=== PATIENT | male | born 1955 | race American Indian/Alaskan Native ===

== ENCOUNTER 2018-08-11 17:01 | Emergency (ER) | payer OTHER ==
[2018-08-11] MEDS ORDERED: XYLOCAINE 2%/ EPI 1:200,000 INFILTRATI ONE (17:52)
[2018-08-11] MEDS ORDERED: NACL 0.9% IR ONE (17:52)
[2018-08-11] MEDS ORDERED: PERCOCET 5/325 PO ONE (17:52)
[2018-08-11] MEDS ORDERED: BOOSTRIX IM ONE (17:52)
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
[2018-08-11 19:04] LABS: BUN/Creatinine Ratio 18; Blood Urea Nitrogen 18 mg/dL (9-20); Calcium 8.8 mg/dL (8.4-10.2); Hemolysis Index 42
[2018-08-11] MEDS ORDERED: KEFLEX PO ONE (20:01)
[2018-08-11] MEDS ORDERED: ANTIBIOTIC OINT TP STA (20:01)
[2018-08-11 22:03] VITALS: BP 157/93
[2018-08-11 22:19] LABS: Bilirubin,Urine NEG (Negative); Blood,Urine NEG (Negative); Color,Urine Yellow (Yellow); Mucus,Urine FEW /HPF; Protein,Urine <15 mg/dL mg/dL (Negative); Urobilinogen,Urine < 2.0 mg/dL (<2.0)
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
[2018-08-11] MEDS ORDERED: ZOFRAN ODT ONE (23:24)
[2018-08-11] MEDS ORDERED: ZOFRAN ODT PO ONE (23:28)
== END 2018-08-11 22:54 | disposition home or self-care (01) ==
LOC: ED 17:01
DX: S61.411A Laceration without foreign body of right hand, initial encounter (principal); I10 Essential (primary) hypertension; M25.512 Pain in left shoulder; M54.2 Cervicalgia; V49.49XA Driver injured in collision with other motor vehicles in traffic accident, initial encounter; Y93.89 Activity, other specified; Y92.89 Other specified places as the place of occurrence of the external cause; Y99.8 Other external cause status
CPT/HCPCS: 36415; 70450; 71045; 80048; 81001; 82550; 82962; 90471; 90715; Q0162

== ENCOUNTER 2018-08-22 14:14 | Emergency (ER) | payer OTHER ==
--- NOTE | 2018-08-22 15:15 | Emergency Department Report ---
Chief Complaint: Laceration/Recheck/Suture Stated Complaint: REMOVAL OF SUTURES - HPI History of Present Illness: This is a 63 y.o. male that presents for evaluation of wound between left 4th and 5th digits. Patient states sutures came out about 5-7 days after placement. Patient was seen here 08/11/2018 and laceration repair. - ROS Review of Systems: skin: wound dehiscence of right hand between 4th & 5th digits - Exam Vital Signs: Vital Signs 08/22/18 15:11 Temperature 98.1 F Pulse Rate 84 Respiratory 18 Rate Blood Pressure 175/101 O2 Sat by Pulse 98 Oximetry MSE screening note: Focused history and physical exam performed. Due to findings the following was ordered: Fast track for further evaluation. ED Disposition for MSE Condition: Stable
--- NOTE | 2018-08-22 17:44 | Emergency Department Report ---
Suture/Staple Removal - [facility] Chief Complaint: Laceration/Recheck/Suture Stated Complaint: REMOVAL OF SUTURES Time Seen by Provider: 08/22/18 16:31 When Sutures or Olin Placed: 8-10 Days Ago Wound Location: right hand ED Review of Systems ROS: Stated complaint: REMOVAL OF SUTURES Other details as noted in HPI Constitutional: denies: chills, fever Eyes: denies: eye pain, eye discharge, vision change ENT: denies: ear pain, throat pain Respiratory: denies: cough, shortness of breath, wheezing Cardiovascular: denies: chest pain, palpitations Endocrine: no symptoms reported Gastrointestinal: denies: abdominal pain, nausea, diarrhea Genitourinary: denies: urgency, dysuria Musculoskeletal: denies: back pain, joint swelling, arthralgia Skin: denies: rash, lesions Neurological: denies: headache, weakness, paresthesias Psychiatric: denies: anxiety, depression Hematological/Lymphatic: denies: easy bleeding, easy bruising ED Past Medical Hx - Past Medical History Previous Medical History?: No - Surgical History Past Surgical History?: No Additional Surgical History: Left toe - Social History Smoking Status: Never Smoker Substance Use Type: None - Medications Home Medications: Home Medications Medication Instructions Recorded Confirmed Last Taken Type Acetaminophen [Tylenol Arthritis] 650 mg PO Q6HR PRN #30 tablet.er 08/11/18 Unknown Rx Bacitracin 3.5 gm OP TID #1 oint...g. 08/11/18 Unknown Rx Cephalexin [Keflex] 500 mg PO BID #10 capsule 08/11/18 Unknown Rx Ibuprofen [Motrin] 600 mg PO Q8H PRN #30 tablet 08/11/18 Unknown Rx Clindamycin [Clindamycin CAP] 300 mg PO Q8H #21 cap 08/22/18 Unknown Rx Suture Removal Exam - Exam General: Vital signs noted. No distress. Alert and acting appropriately. Wound: Yes Wound Dehiscence, No Pathologic Erythema, No Tenderness, No Drainage, No Pus Other Systems: All other systems reviewed and are unremarkable. ED Course Vital Signs 08/22/18 15:11 Temperature 98.1 F Pulse Rate 84 Respiratory 18 Rate Blood Pressure 175/101 O2 Sat by Pulse 98 Oximetry - Reevaluation(s) Reevaluation #1: 08/22/18 18:00 Patient is speaking in full sentences with no signs of distress noted. ED Recheck MDM - Medical Decision Making This is a 63-year-old male that presents with suture removal with some superficial dehiscence. Patient is stable and was examined by me. Sutures have not been removed as it is not ready and there is some dehiscence. As per patient the dehiscence started about 7 days ago. Today, i used steri streps to proximate the dehiscence and will discharge patient with Clinda. He was instructed to return in 5 days for suture removal. Patient was referred to Follow-up with a primary care doctor in 3-5 days or if symptoms worsen and continue return to emergency room as soon as possible. At time of discharge, the patient does not seem toxic or ill in appearance. No acute signs of distress noted. Patient agrees to discharge treatment plan of care. No further questions noted by the patient. Critical care attestation.: If time is entered above; I have spent that time in minutes in the direct care of this critically ill patient, excluding procedure time. ED Disposition Clinical Impression: Wound dehiscence Disposition: DC-01 TO HOME OR SELFCARE Is pt being admited?: No Does the pt Need Aspirin: No Condition: Stable Instructions: Wound Dehiscence (ED) Additional Instructions: Follow-up with a primary care doctor in 3-5 days or if symptoms worsen and continue return to emergency room as soon as possible. Return in 5 days for suture removal. Prescriptions: Clindamycin [Clindamycin CAP] 300 mg PO Q8H #21 cap [facility] [Primary Care Provider] - 3-5 Days PRIMARY MD CARLOS ALBERTO [Referring] - 3-5 Days DANTE RENEE MD [Staff Physician] - 3-5 Days [facility] [Outside] - 3-5 Days Forms: Work/School Release Form(ED)
== END 2018-08-22 18:20 | disposition home or self-care (01) ==
LOC: ED 14:14
CPT/HCPCS: 99282

== ENCOUNTER 2018-08-28 15:51 | Emergency (ER) | payer SELFPAY ==
--- NOTE | 2018-08-28 16:07 | Emergency Department Report ---
Suture/Staple Removal - [facility] Chief Complaint: Laceration/Recheck/Suture Stated Complaint: SUTURE REMOVAL Time Seen by Provider: 08/28/18 16:05 When Sutures or Alverto Placed: 8-10 Days Ago Wound Location: r hand ED Review of Systems ROS: Stated complaint: SUTURE REMOVAL Other details as noted in HPI Comment: All other systems reviewed and negative Constitutional: denies: see HPI Eyes: denies: eye pain ENT: denies: throat pain Respiratory: denies: cough Cardiovascular: denies: palpitations Endocrine: denies: intolerance to cold Gastrointestinal: denies: vomiting Genitourinary: denies: urgency Musculoskeletal: denies: back pain Skin: as per HPI, lesions Neurological: denies: headache Psychiatric: denies: anxiety Hematological/Lymphatic: denies: easy bleeding ED Past Medical Hx - Past Medical History Previous Medical History?: No - Surgical History Past Surgical History?: No Additional Surgical History: Left toe - Family History Family history: no significant - Social History Smoking Status: Never Smoker Substance Use Type: None - Medications Home Medications: Home Medications Medication Instructions Recorded Confirmed Last Taken Type Acetaminophen [Tylenol Arthritis] 650 mg PO Q6HR PRN #30 tablet.er 08/11/18 Unknown Rx Bacitracin 3.5 gm OP TID #1 oint...g. 08/11/18 Unknown Rx Cephalexin [Keflex] 500 mg PO BID #10 capsule 08/11/18 Unknown Rx Ibuprofen [Motrin] 600 mg PO Q8H PRN #30 tablet 08/11/18 Unknown Rx Clindamycin [Clindamycin CAP] 300 mg PO Q8H #21 cap 08/22/18 Unknown Rx Suture Removal Exam - Exam General: Vital signs noted. No distress. Alert and acting appropriately. Wound: Yes Tenderness, Yes Wound Dehiscence (see last visits note; healing well; taking antibiotic. no fever. full rom of hand and digits), No Pathologic Erythema, No Drainage, No Pus Other Systems: All other systems reviewed and are unremarkable. ED Recheck MDM - Differential Diagnosis Suture/Staple Removal - Medical Decision Making simple suture removal Critical care attestation.: If time is entered above; I have spent that time in minutes in the direct care of this critically ill patient, excluding procedure time. ED Disposition Clinical Impression: Visit for suture removal Disposition: - TO HOME OR SELFCARE Is pt being admited?: No Does the pt Need Aspirin: No Condition: Stable Instructions: Suture Removal (ED) Additional Instructions: allow air to get to hand bandaid only wash with soap and water no peroxide it may be tender for a few days as the fingers heal motrin or tylenol for pain continue antibiotics until gone. Referrals: [facility] [Outside] - 3-5 Days Time of Disposition: 16:15
== END 2018-08-28 16:24 | disposition home or self-care (01) ==
LOC: ED 15:51

== ENCOUNTER 2020-03-19 05:17 | Emergency (ER) | payer OTHER ==
[2020-03-19] MEDS ORDERED: ACETAMINOPHEN 500 MG TAB PO ONE (09:31)
[2020-03-19] MEDS ORDERED: hydroCHLOROthiazide 25 MG TAB PO ONE (09:31)
[2020-03-19] MEDS ORDERED: amLODIPine 5 MG TAB PO ONE (09:31)
[2020-03-19] MEDS ORDERED: IBUPROFEN 400 MG TAB PO ONE (09:31)
--- NOTE | 2020-03-19 09:31 | Emergency Department Report ---
ED General Adult HPI - General Chief complaint: Dental/Oral Stated complaint: PAINFUL GROWTH UNDER NECK PUI?: No Time Seen by Provider: 03/19/20 08:39 Source: patient, RN notes reviewed, old records reviewed Mode of arrival: Ambulatory Limitations: No Limitations - History of Present Illness Initial comments: The patient was evaluated in the emergency department for symptoms described in the history of present illness. He/she was evaluated in the context of the global COVID-19 pandemic, which necessitated consideration that the patient might be at risk for infection with the virus that causes COVID-19. Institutional protocols and algorithms that pertain to the evaluation of patients at risk for COVID-19 are in a state of rapid change based on information released by regulatory bodies including the CDC and federal and state organizations. These policies and algorithms were followed during the patient's care in the emergency department. Please note that these policies, procedures and recommendations changed on a rapid basis. Mr. Jones is a pleasant 64-year-old gentleman. He is not known to myself previously. He does not have a local primary care doctor. He appears to have a history of hypertension and obesity. He does not take any prescription medications at this time. He presents to the ER with a complaint of nontraumatic minimally painful swelling underneath his jaw, midline, present for a few weeks. He is taking [id number] NSAIDs. He denies headache, neck pain, stridor, dysphonia, loss of taste, loss of smell. He has chronic dental pain. He has chronic mild bilateral lower extremity e harjinder. He has minimal discomfort over the swelling, and denies redness, pus or streaking. He came in today "just to get it checked out." -: Gradual, week(s) Location: face Severity scale (0 -10): 5 Quality: aching Consistency: constant Improves with: none Worsens with: none Associated Symptoms: denies other symptoms, other (As per history of present illness) - Related Data Previous Rx's Medication Instructions Recorded Last Taken Type Amlodipine Besylate [Norvasc] 5 mg PO QDAY #30 tablet 03/19/20 Unknown Rx Clindamycin [Clindamycin CAP] 300 mg PO Q6H #28 capsule 03/19/20 Unknown Rx hydroCHLOROthiazide [Hctz] 12.5 mg PO QDAY #30 capsule 03/19/20 Unknown Rx Allergies Allergy/AdvReac Type Severity Reaction Status Date / Time No Known Allergies Allergy Verified 12/16/19 05:33 ED Review of Systems ROS: Stated complaint: PAINFUL GROWTH UNDER NECK Other details as noted in HPI Constitutional: denies: fever, malaise Eyes: denies: eye discharge, vision change ENT: dental pain (Chronic dental pain). denies: ear pain, throat pain Respiratory: denies: cough, wheezing Cardiovascular: edema (Chronic lower extremity edema). denies: chest pain Gastrointestinal: denies: abdominal pain, hematemesis, melena, hematochezia Genitourinary: denies: dysuria Musculoskeletal: denies: myalgia Neurological: denies: weakness Hematological/Lymphatic: denies: easy bleeding ED Past Medical Hx - Past Medical History Hx Hypertension: Yes Additional medical history: "Heart probs" - Surgical History Additional Surgical History: Left toe - Social History Smoking Status: Never Smoker Substance Use Type: None - Medications Home Medications: Home Medications Medication Instructions Recorded Confirmed Last Taken Type Amlodipine Besylate [Norvasc] 5 mg PO QDAY #30 tablet 03/19/20 Unknown Rx Clindamycin [Clindamycin CAP] 300 mg PO Q6H #28 capsule 03/19/20 Unknown Rx hydroCHLOROthiazide [Hctz] 12.5 mg PO QDAY #30 capsule 03/19/20 Unknown Rx ED Physical Exam - General Limitations: No Limitations General appearance: alert, in no apparent distress, obese - Head Head exam: Present: atraumatic, normocephalic - Eye Eye exam: Present: normal appearance, EOMI. Absent: nystagmus - ENT ENT exam: Present: normal orophraynx (Patient has poor dentition. There is no stridor or dysphonia. There is no elevation of the base of the tongue. There is no sublingual tenderness.), mucous membranes moist, normal external ear exam - Neck Neck exam: Present: normal inspection, full ROM, lymphadenopathy (Patient has midline submandibular swelling, nontender, 2 cm x 2 cm, without redness, streaking, pus.), other (There is minimal midline induration without tenderness.). Absent: tenderness, meningismus, thyromegaly - Respiratory Respiratory exam: Present: normal lung sounds bilaterally. Absent: respiratory distress - Cardiovascular Cardiovascular Exam: Present: regular rate, normal rhythm, normal heart sounds. Absent: bradycardia, tachycardia, irregular rhythm, systolic murmur, diastolic murmur, rubs, gallop - GI/Abdominal GI/Abdominal exam: Present: soft. Absent: distended, tenderness, guarding, rebound, rigid, pulsatile mass - Rectal Rectal exam: Present: deferred - Extremities Exam Extremities exam: Present: normal inspection, full ROM, pedal edema (1+ edema in the bilateral lower extremities), other (2+ pulses noted in the bilateral upper and lower extremities. There is no palpable cord. negative Homans sign. M uscular compartments are soft. The pelvis is stable.). Absent: calf tenderness - Back Exam Back exam: Present: normal inspection, full ROM. Absent: tenderness, CVA tenderness (R), CVA tenderness (L), paraspinal tenderness, vertebral tenderness - Neurological Exam Neurological exam: Present: alert, oriented X3, normal gait, other (No facial droop. Tongue midline. Extraocular movements intact bilaterally. Facial se nsation intact to light touch in V1, V2, V3 distribution bilaterally. 5 and a 5 strength in 4 extremities. Sensation intact to light touch in 4 extremities.). Absent: motor sensory deficit - Psychiatric Psychiatric exam: Present: normal affect, normal mood - Skin Skin exam: Present: warm, dry, intact, normal color. Absent: rash ED Course Vital Signs 03/19/20 03/19/20 03/19/20 05:20 08:33 08:34 Temperature 97.9 F Pulse Rate 85 83 79 Respiratory 18 18 17 Rate Blood Pressure 212/136 Blood Pressure 196/112 [Right] O2 Sat by Pulse 97 99 99 Oximetry 03/19/20 03/19/20 03/19/20 08:46 09:00 09:15 Temperature Pulse Rate 79 77 81 Respiratory 17 14 14 Rate Blood Pressure 206/118 187/117 197/121 Blood Pressure [Right] O2 Sat by Pulse 96 95 94 Oximetry 03/19/20 03/19/20 03/19/20 09:30 09:39 09:45 Temperature Pulse Rate 78 83 81 Respiratory 16 15 Rate Blood Pressure 190/118 190/118 190/118 Blood Pressure [Right] O2 Sat by Pulse 97 95 Oximetry 03/19/20 03/19/20 03/19/20 10:00 10:15 10:19 Temperature Pulse Rate 82 80 Respiratory 17 18 Rate Blood Pressure 190/118 185/118 Blood Pressure 185/118 [Right] O2 Sat by Pulse 95 99 98 Oximetry 03/19/20 03/19/20 10:30 10:48 Temperature Pulse Rate 79 79 Respiratory 17 18 Rate Blood Pressure 183/111 Blood Pressure 191/118 [Right] O2 Sat by Pulse 96 99 Oximetry - Reevaluation(s) Reevaluation #1: 03/19/20 10:34 Differential diagnosis, including but not limited to: Cellulitis, ingrown hair, tumor/malignancy, renal insufficiency, hepatic insufficiency, obesity, hypertension, noncompliance Assessment and plan: 64-year-old gentleman, who is afebrile with reassuring vital signs with the exception of chronic hypertension, presenting to the ER with a 2 x 2 centimeter midline area of induration, just posterior to the mentum. The patient has no stridor, no dysphonia, is protecting his airway, and has no significant intraoral findings. I performed a superficial soft tissue bedside ultrasound, and did not see significant drainable fluid collection. Furthermore, this lesion is not red, not tender, there is no pus or streaking. Warm compresses, NSAIDs, follow-up with outpatient ENT for fine-needle aspiration. Clinically doubt infection at this time, but will cover empirically with clindamycin Patient has evidence of chronic poorly managed medical condition, including lower extremity edema, obesity and hypertension. Please reference the [employer] clinical policy on hypertension which is not acutely symptomatic or decompensated. We will start the patient on low-dose Norvasc, and HCTZ, draw screening laboratory studies to assess renal function and hepatic function, discharged with the aforementioned medications, he will need to follow-up with a primary care doctor. 03/19/20 10:39 03/19/20 11:42 reassessed. Laboratory studies unremarkable for emergent pathology. Patient resting comfortably in his stretcher, and in no acute distress. Braulio jernigan to follow-up as an outpatient. He will be given an affordable prescription card. ED Medical Decision Making - Lab Data Result diagrams: 03/19/20 09:43 03/19/20 09:43 Vital Signs 03/19/20 03/19/20 03/19/20 05:20 08:33 09:39 Temperature 97.9 F Pulse Rate 85 83 83 Respiratory 18 18 Rate Blood Pressure 212/136 190/118 Blood Pressure 196/112 [Right] O2 Sat by Pulse 97 99 Oximetry 03/19/20 10:19 Temperature Pulse Rate 80 Respiratory 18 Rate Blood Pressure Blood Pressure 185/118 [Right] O2 Sat by Pulse 98 Oximetry Critical care attestation.: If time is entered above; I have spent that time in minutes in the direct care of this critically ill patient, excluding procedure time. ED Disposition Clinical Impression: Elevated blood pressure reading, Dependent edema, Submandibular swelling Disposition: DC-01 TO HOME OR SELFCARE Is pt being admited?: No Does the pt Need Aspirin: No Condition: Good Additional Instructions: We recommend that the patient follow-up with a primary care doctor within the next month. Recommend the patient lose weight, participate in physical activities as tolerated, eat plenty of fiber, vegetables, and lean protein, avoid consumption of tobacco, smoke products, alcohol, simple carbohydrates and processed foods. In terms of the patient's swelling underneath the jaw, apply warm compresses as often as as needed, patient may follow-up with an outpatient ENT/digital imaging technician, within the next 2 to 3 weeks, if swelling does not go down, to exclude cancer, tumor, malignancy. Patient may also purchase [id number] sialagogues/sucking candies (preferably sugar-free), and use those as often as he desires to assist with symptoms. Patient was found to have high blood pressure while here in the emergency room. Please take the prescription medications as directed, and follow-up with a primary care doctor for this within the next month. Long-term complications of hypertension and elevated blood pressure include stroke, heart attack, disability, , paralysis, loss of quality of life. Please return to the emergency room right away with new pain, worsening pain, migration of pain, projectile vomiting, change in mental status, confusion, inability to tolerate liquid feeds, new, worsened or different symptoms not present on the initial emergency room evaluation. Prescriptions: hydroCHLOROthiazide [Hctz] 12.5 mg PO QDAY #30 capsule Amlodipine Besylate [Norvasc] 5 mg PO QDAY #30 tablet Referrals: ERVIN BECERRIL MD [Primary Care Provider] - as needed TEREZA DESAI MD [Staff Physician] - as needed
[2020-03-19 10:04] LABS: Hematocrit 42.3 % (35.5-45.6); Hemoglobin 13.6 gm/dl (11.8-15.2)
[2020-03-19 10:49] LABS: Alanine Aminotransferase 19 units/L (7-56); Albumin 3.4 g/dL (3.9-5); BUN/Creatinine Ratio 17; Blood Urea Nitrogen 20 mg/dL (9-20); Hemolysis Index 13
[2020-03-19] MEDS ORDERED: CLINDAMYCIN 300 MG CAP PO ONE (11:41)
[2020-03-19 12:05] VITALS: BP 176/107
== END 2020-03-19 12:04 | disposition home or self-care (01) ==
LOC: ED 05:17
DX: R60.9 Edema, unspecified (principal); I10 Essential (primary) hypertension; Z98.890 Other specified postprocedural states; Z79.2 Long term (current) use of antibiotics; Z79.899 Other long term (current) drug therapy
CPT/HCPCS: 36415; 80053; 82550; 83735; 85014; 85018; 85049

== ENCOUNTER 2021-01-23 15:22 | Inpatient (IN) | payer MEDICARE, OTHER, SELFPAY ==
[2021-01-25 06:04] VITALS: BP 136/76
== END 2021-01-25 23:56 | disposition home or self-care (01) | DRG 177 ==
LOC: ED 15:22 → 3A 01-24 03:48
PROVIDERS: ADMIT Hospitalist; ATTEND Internal Medicine
DX: U07.1 COVID-19 (principal); J12.82 Pneumonia due to coronavirus disease 2019; N17.9 Acute kidney failure, unspecified; I10 Essential (primary) hypertension; Z79.899 Other long term (current) drug therapy; Z79.891 Long term (current) use of opiate analgesic; Z79.01 Long term (current) use of anticoagulants
CPT/HCPCS: 36415; 71046; 71275; 80048; 80053; 81001; 82728; 82947; 83615; 83690; 84145; 84484; 85007; 85025; 85379; 86140; 93005; 94640; 94644; G0378; J0360; J0456; J0696; J1100; J1644; J7030; Q9967; U0003

== ENCOUNTER 2022-01-09 07:32 | Emergency (ER) | payer SELFPAY ==
[2022-01-09 08:41] LABS: Basophils % (Auto) 0.2 % (0.0-1.8); Eosinophils # (Auto) 0.1 K/mm3 (0.0-0.4); Eosinophils % (Auto) 0.6 % (0.0-4.3); Hematocrit 40.8 % (35.5-45.6); Hemoglobin 13.4 gm/dl (11.8-15.2); Lymphocytes # (Auto) 0.6 K/mm3 (1.2-5.4); Lymphocytes % (Auto) 6.2 % (13.4-35.0); Mean Corpuscular HGB Conc 33 % (32-34); Mean Corpuscular Volume 87 fl (84-94); Monocytes # (Auto) 1.1 K/mm3 (0.0-0.8); Monocytes % (Auto) 11.4 % (0.0-7.3); Red Blood Count 4.71 M/mm3 (3.65-5.03); Red Cell Distribution Width 15.4 % (13.2-15.2)
[2022-01-09 08:43] LABS: Platelet Count 82 K/mm3 (140-440)
[2022-01-09] MEDS ORDERED: SODIUM CHLORIDE 0.9% 1000 ML 1,000 ML IV ONE (08:49)
[2022-01-09] MEDS ORDERED: PROCHLORPERAZINE EDISYLATE 10 MG/2 ML VIAL IV ONE (08:49)
--- NOTE | 2022-01-09 08:52 | Emergency Department Report ---
ED Headache HPI - General Chief Complaint: Headache Stated Complaint: STOMACH PAIN/HEADACHE Time Seen by Provider: 01/09/22 08:45 Source: patient Exam Limitations: no limitations - History of Present Illness Initial Comments: Patient is a 66-year-old male with history of hypertension presenting to ED with complaint of gradual onset frontal headache beginning 2 days ago not improved with Aleve and Goody's powder. He describes his headache as a throbbing in nature. He also reports aching suprapubic abdominal pain also beginning 2 days ago. He denies any changes in bowel habits, dysuria or hematuria. Allergies/Adverse Reactions: Allergies No Known Allergies Allergy (Verified 01/24/21 02:09) Home Medications: Ambulatory Orders Amlodipine Besylate [Norvasc] 5 mg PO QDAY #30 tablet 03/19/20 Clindamycin [Clindamycin CAP] 300 mg PO Q6H #28 capsule 03/19/20 hydroCHLOROthiazide [HCTZ] 12.5 mg PO QDAY #30 capsule 03/19/20 Ascorbic Acid [Vitamin C] 1,000 mg PO DAILY #30 tablet 01/25/21 Cholecalciferol (Vitamin D3) [Vitamin D3] 5,000 unit PO DAILY #30 tablet 01/25/21 Dexamethasone 6 mg PO DAILY #10 tablet 01/25/21 Famotidine [Pepcid] 20 mg PO BID #60 tablet 01/25/21 Zinc Sulfate 220 mg PO DAILY #30 capsule 01/25/21 cephALEXin [Keflex] 500 mg PO Q12HR #7 cap 01/09/22 ED Review of Systems ROS: Stated complaint: STOMACH PAIN/HEADACHE Other details as noted in HPI Constitutional: denies: chills, fever Respiratory: denies: cough, shortness of breath, wheezing Cardiovascular: denies: chest pain, palpitations Gastrointestinal: abdominal pain. denies: nausea, vomiting, diarrhea, constipation, melena Genitourinary: denies: dysuria, frequency Musculoskeletal: denies: back pain, joint swelling, arthralgia Skin: denies: rash, lesions Neurological: headache Psychiatric: denies: anxiety, depression ED Past Medical Hx - Past Medical History Previous Medical History?: Yes Hx Hypertension: Yes Additional medical history: "Heart probs" - Surgical History Past Surgical History?: Yes Additional Surgical History: Left toe - Social History Smoking Status: Never Smoker Substance Use Type: None - Medications Home Medications: Home Medications Medication Instructions Recorded Confirmed Last Taken Type Amlodipine Besylate [Norvasc] 5 mg PO QDAY #30 tablet 03/19/20 Unknown Rx Clindamycin [Clindamycin CAP] 300 mg PO Q6H #28 capsule 03/19/20 Unknown Rx hydroCHLOROthiazide [HCTZ] 12.5 mg PO QDAY #30 capsule 03/19/20 Unknown Rx Ascorbic Acid [Vitamin C] 1,000 mg PO DAILY #30 tablet 01/25/21 Unknown Rx Cholecalciferol (Vitamin D3) 5,000 unit PO DAILY #30 tablet 01/25/21 Unknown Rx [Vitamin D3] Dexamethasone 6 mg PO DAILY #10 tablet 01/25/21 Unknown Rx Famotidine [Pepcid] 20 mg PO BID #60 tablet 01/25/21 Unknown Rx Zinc Sulfate 220 mg PO DAILY #30 capsule 01/25/21 Unknown Rx cephALEXin [Keflex] 500 mg PO Q12HR #7 cap 01/09/22 Unknown Rx ED Physical Exam - General Limitations: No Limitations General appearance: alert, in no apparent distress, obese - Head Head exam: Present: atraumatic, normocephalic - Neck Neck exam: Present: normal inspection - Respiratory Respiratory exam: Present: normal lung sounds bilaterally. Absent: respiratory distress - Cardiovascular Cardiovascular Exam: Present: regular rate, normal rhythm, normal heart sounds - GI/Abdominal GI/Abdominal exam: Present: soft. Absent: distended, tenderness - Rectal Rectal exam: Present: deferred - Neurological Exam Neurological exam: Present: alert, oriented X3 - Psychiatric Psychiatric exam: Present: normal affect, normal mood - Skin Skin exam: Present: warm, dry, intact, normal color ED Course Vital Signs 01/09/22 01/09/22 07:52 08:36 Temperature 97.8 F Pulse Rate 91 H Respiratory 22 14 Rate Blood Pressure 146/80 [Right] O2 Sat by Pulse 98 98 Oximetry ED Medical Decision Making - Lab Data Result diagrams: 01/09/22 08:08 01/09/22 08:08 - Medical Decision Making 66-year-old male presenting with complaint of headache and suprapubic discomfort. He was given 1 L normal saline bolus along with IV Compazine. CBC grossly unremarkable. Chemistry reveals creatinine of 2.0 along with mildly elevated LFTs. He denies any right upper quadrant pain, nausea or vomiting. UA shows 8 WBCs, leukocyte Estrace and nitrate negative. Will treat with course of Keflex. On reassessment patient's headache is resolved. He is stable for discharge home with return precautions. Follow-up with PCP within 1 week. Critical care attestation.: If time is entered above; I have spent that time in minutes in the direct care of this critically ill patient, excluding procedure time. ED Disposition Clinical Impression: Tension headache, UTI (urinary tract infection), Elevated LFTs Disposition: 01 HOME / SELF CARE / HOMELESS Is pt being admited?: No Does the pt Need Aspirin: No Condition: Stable Instructions: Tension Headache, Adult, [id number], Urinary Tract Infection, Adult, [id number] Additional Instructions: Please follow-up with your regular doctor in 1 to 2 weeks. You may return if your symptoms worsen. Referrals: TEREZA DESAI MD [Primary Care Provider] - 3-5 Days Time of Disposition: 11:19
[2022-01-09 09:16] LABS: Albumin 3.8 g/dL (3.9-5); Calcium 8.3 mg/dL (8.4-10.2)
[2022-01-09 10:39] LABS: Bacteria,Urine 1+ /HPF (Negative); Mucus,Urine 1+ /HPF
[2022-01-09 11:05] LABS: Color,Urine Yellow (Yellow)
[2022-01-09 11:06] LABS: Bilirubin,Urine Small (Negative); Blood,Urine 1+ (Negative); Ictotest,Urine Positive (Negative)
[2022-01-09 11:44] VITALS: BP 168/89
== END 2022-01-09 11:43 | disposition home or self-care (01) ==
LOC: ED 07:32
DX: G44.209 Tension-type headache, unspecified, not intractable (principal); N39.0 Urinary tract infection, site not specified; R74.01 Elevation of levels of liver transaminase levels; I10 Essential (primary) hypertension; Z79.899 Other long term (current) drug therapy
CPT/HCPCS: 36415; 80053; 81001; 85025; 96361; 96374; 99283; J0780; J7030